=== PATIENT | female | born 1945 | race Caucasian/White ===

== ENCOUNTER 2023-02-13 08:59 | Day surgery (SDC) | payer MEDICARE, BC ==
[2023-02-12 15:35] LABS: BASOPHILS # (AUTO) 0.1 X10'3 (0-0.2); BASOPHILS % (AUTO) 0.5 % (0-1); EOSINOPHILS # (AUTO) 0.3 X10'3 (0-0.9); EOSINOPHILS % (AUTO) 2.3 % (0-6); HEMATOCRIT 35.4 % (35.0-45.0); HEMOGLOBIN 11.5 g/dl (12.0-16.0); LYMPHOCYTES # (AUTO) 1.5 X10'3 (1.1-4.8); LYMPHOCYTES % (AUTO) 12.8 % (21-51); MEAN CORPUSCULAR HEMOGLOBIN 28.6 PG (27.0-31.0); MEAN CORPUSCULAR HGB CONC 32.6 g/dL (33.0-36.5); MEAN CORPUSCULAR VOLUME 87.8 FL (78-98); MEAN PLATELET VOLUME 9.2 FL (7.4-10.4); MONOCYTES % (AUTO) 8.8 % (2-12); NEUTROPHILS # (AUTO) 8.6 X10'3 (1.8-7.7); NEUTROPHILS % (AUTO) 75.6 % (42-75); PLATELET COUNT 286 X10'3 (140-440); RED BLOOD COUNT 4.04 X10'6 (4.20-5.60); RED CELL DISTRIBUTION WIDTH 14.5 % (11.5-14.5); WHITE BLOOD COUNT 11.4 X10'3 (4.5-11.0)
[2023-02-12 15:41] LABS: ALBUMIN 3.4 G/DL (3.4-5.0); ANION GAP 10 (8-16); BLOOD UREA NITROGEN 23 MG/DL (7-18); BUN/CREATININE RATIO 32.4 (10.0-20.0); CHLORIDE 103 MMOL/L (99-107); CREATININE 0.71 MG/DL (0.40-0.90); GLUCOSE 109 MG/DL (70-104); SODIUM 136 MMOL/L (135-145); TOTAL CARBON DIOXIDE 22.9 MMOL/L (24-32); eGFR 79 ML/MIN
[2023-02-12 15:45] LABS: APTT 23 SECONDS (22-32); PROTHROMBIN TIME 10.4 SECONDS (9.0-12.0)
[2023-02-13] VITALS (10 sets, daily range): BP systolic 103–158; BP diastolic 54–95; PULSE 60–85; RESP 12; TEMP 98.2; O2SAT 94–98
[~2023-02-13] VITALS: Ht 165.1 cm; Wt 69.5 kg
[2023-02-13] MEDS ORDERED: normal saline 1,000 ML IV SCH (09:25)
[2023-02-13] MEDS ORDERED: METR45GE9 TOP (09:25)
[2023-02-13] MEDS ORDERED: DOXY100T2 PO (09:25)
[2023-02-13] MEDS ORDERED: LORazepam 0.5 MG tablet PO PRN (09:25)
[2023-02-13] MEDS ORDERED: GABA-530 PO (09:25)
[2023-02-13] MEDS ORDERED: LISI40TA13 PO (09:25)
[2023-02-13] MEDS ORDERED: diphenhydrAMINE 25mg capsule PO PRN (09:25)
[2023-02-13] MEDS ORDERED: VITA-273 PO (09:25)
[2023-02-13] MEDS ORDERED: ASPI81TA52 PO (09:25)
[2023-02-13] MEDS ORDERED: PENT400T17 PO (09:25)
[2023-02-13] MEDS ORDERED: PRAV10TA39 PO (09:25)
[2023-02-13] MEDS ORDERED: GENT30OI2 TOP (09:25)
[2023-02-13] MEDS ORDERED: CHOL10008 PO (09:25)
[2023-02-13] MEDS ORDERED: NAPR220C62 PO (09:28)
[2023-02-13] MEDS ORDERED: UBID100C16 PO (09:28)
[2023-02-13] MEDS ORDERED: midazolam 1 mg/ML 2ml injection ONE (10:44)
[2023-02-13] MEDS ORDERED: fentaNYL/PF 50MCG/1 ML 2ML syringe ONE (10:44)
[2023-02-13] MEDS ORDERED: heparin 1,000unit/ml 10ml vial 10 ML ONE ×2 (10:44→12:37)
[2023-02-13] MEDS ORDERED: iohexol 350MG/ML 100ml bottle IV ONE (10:44)
[2023-02-13] MEDS ORDERED: verapamil 2.5 mg/ml inj IV ONE (10:44)
[2023-02-13] MEDS ORDERED: LIDOcaine 1% (10mg/ml) 2ml vial ONE (10:44)
[2023-02-13] MEDS ORDERED: heparin 1,000 UNITS/NS 500ml 500 ML ONE (10:45)
[2023-02-13] MEDS ORDERED: nitroGLYCERIN 500mcg/5mL D5W 5 ML IV ONE (10:45)
[2023-02-13] MEDS ORDERED: iohexol 350 MG/ML 50ML vial IV ONE ×2 (11:01→12:26)
[2023-02-13] MEDS ORDERED: heparin 25,000 UNIT/250ml bag 250 ML IV ONE (12:14)
[2023-02-13] MEDS ORDERED: clopidogrel 300mg tablet ONE (12:29)
[2023-02-13 12:52] LABS: ISTAT HGB ART 9.2 g/dl (12.0-16.0); ISTAT Hct ART 27 %PCV (35-45); ISTAT O2 SATURATION ARTERIAL 96 % (95-98); ISTAT SOURCE ART
[2023-02-13] MEDS ORDERED: normal saline 1000ml 1,000 ML IV SCH (13:10)
[2023-02-13 13:14] LABS: ISTAT HGB MIX 9.5 g/dl (12.0-16.0); ISTAT Hct MIX 28 %PCV (35-45); ISTAT O2 SATURATION MIX VENOUS 74 % (60-80); ISTAT SOURCE VEN
[2023-02-14] MEDS ORDERED: clopidogrel 75mg tablet PO SCH (08:00)
== END 2023-02-13 17:00 | disposition home or self-care (01) ==
LOC: SSTAY O 08:59
PROVIDERS: ATTEND Internal Medicine Cardiovascular Disease
DX: I35.0 Nonrheumatic aortic (valve) stenosis (principal); I25.10 Atherosclerotic heart disease of native coronary artery without angina pectoris; I10 Essential (primary) hypertension; E78.5 Hyperlipidemia, unspecified; E66.3 Overweight; Z68.25 Body mass index [BMI] 25.0-25.9, adult; Z98.890 Other specified postprocedural states; Z79.899 Other long term (current) drug therapy; Z79.01 Long term (current) use of anticoagulants; Z87.891 Personal history of nicotine dependence; Z81.8 Family history of other mental and behavioral disorders; Z83.6 Family history of other diseases of the respiratory system; Z82.49 Family history of ischemic heart disease and other diseases of the circulatory system
CPT/HCPCS: 36415; 76937; 80048; 82803; 85014; 85025; 85347; 85610; 85730; 93005; 93460; 99152; 99153; A6258; C1874; C9600; J1644; J2250; J3010; J3490; J7030; Q0163; Q9967; A6402; C1725; C1751; C1769; C1894